=== PATIENT | male | born 1980 | race Caucasian/White ===

== ENCOUNTER 2017-03-02 12:05 | Emergency (ER) | payer SELFPAY ==
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
== END 2017-03-02 13:00 | disposition disaster alternative care site (69) ==
LOC: GMED 12:05
DX: M62.838 Other muscle spasm (principal); F41.9 Anxiety disorder, unspecified; G40.909 Epilepsy, unspecified, not intractable, without status epilepticus; F43.10 Post-traumatic stress disorder, unspecified; I10 Essential (primary) hypertension; Z79.899 Other long term (current) drug therapy
CPT/HCPCS: J3360

== ENCOUNTER 2017-03-24 19:44 | Emergency (ER) | payer SELFPAY ==
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
== END 2017-03-24 20:32 | disposition disaster alternative care site (69) ==
LOC: GMED 19:44
DX: G89.29 Other chronic pain (principal); M79.1 Myalgia; F17.210 Nicotine dependence, cigarettes, uncomplicated; F43.10 Post-traumatic stress disorder, unspecified; G40.909 Epilepsy, unspecified, not intractable, without status epilepticus; F41.9 Anxiety disorder, unspecified; F32.9 Major depressive disorder, single episode, unspecified; I10 Essential (primary) hypertension; Z90.2 Acquired absence of lung [part of]; Z79.899 Other long term (current) drug therapy
CPT/HCPCS: J1885